=== PATIENT | female | born 1940 ===

== ENCOUNTER 2016-03-28 16:00 | Outpatient (RCR) | payer OTHER | END 2016-04-12 | disposition home or self-care (01) | LOC: PTY 16:00 | DX: M70.62 Trochanteric bursitis, left hip (principal) | CPT/HCPCS: 29520 ==

== ENCOUNTER 2016-04-22 10:07 | Outpatient (RCR) | payer OTHER | END 2016-05-13 | disposition home or self-care (01) | LOC: PTY 10:07 | DX: M70.62 Trochanteric bursitis, left hip (principal); M19.90 Unspecified osteoarthritis, unspecified site; M81.0 Age-related osteoporosis without current pathological fracture ==